=== PATIENT | male | born 1960 | race Caucasian/White ===

== ENCOUNTER 2016-06-19 17:52 | Emergency (ER) | payer BC ==
[2016-06-19 18:01] VITALS: BP 177/84; PULSE 84; RESP 17; TEMP 97.9
--- NOTE | 2016-06-19 18:38 | ED ---
Wound/Laceration HPI - General Chief Complaint: Wound/Laceration Stated Complaint: LACERATION ON RT WRIST Time Seen by Provider: 06/19/16 18:03 Source: patient Mode of arrival: ambulatory Limitations: no limitations - History of Present Illness Initial Comments: 55-year-old male presents to the ER complaining of right forearm laceration after an accidental incident with a knife. Patient states he is trying to undo a safety On a gas can when he accidentally lacerated the right forearm. Patient states it is tender and sore bleeding was controlled with pressure. Patient states his tetanus is up-to-date. He denies any numbness or tingling or loss of motion or sensation. Patient is is unable to clean the wound. She came right here. No other concerns or complaints Patient Tetanus UTD: Yes Context: accidental Associated Symptoms: pain - Related Data Previous Rx's Medication Instructions Recorded Cephalexin [Keflex] 500 mg PO Q6HR #40 cap 09/27/15 Cephalexin [Keflex] 500 mg PO Q8HR #30 cap 06/19/16 Allergies Allergy/AdvReac Type Severity Reaction Status Date / Time No Known Allergies Allergy Verified 09/27/15 11:53 Review of Systems ROS Statement: Those systems with pertinent positive or pertinent negative responses have been documented in the HPI. ROS Other: All systems not noted in ROS Statement are negative. Constitutional: Denies: fever, chills Skin: Reports: other (Lack to right forearm ventral surface) Neurological: Denies: numbness, paresthesias Past Medical History Past Medical History: No Reported History History of Any Multi-Drug Resistant Organisms: None Reported Past Surgical History: No Surgical Hx Reported Past Psychological History: No Psychological Hx Reported Smoking Status: Current every day smoker Past Alcohol Use History: Occasional Past Drug Use History: None Reported General Exam Limitations: no limitations General appearance: alert, in no apparent distress Head exam: Present: atraumatic, normocephalic, normal inspection Eye exam: Present: normal appearance, PERRL, EOMI. Absent: scleral icterus, conjunctival injection, periorbital swelling Respiratory exam: Present: normal lung sounds bilaterally. Absent: respiratory distress, wheezes, rales, rhonchi, stridor Cardiovascular Exam: Present: regular rate, normal rhythm, normal heart sounds. Absent: systolic murmur, diastolic murmur, rubs, gallop, clicks Extremities exam: Present: full ROM, tenderness, normal capillary refill. Absent: normal inspection (Right forearm ventral surface 2 cm laceration linear) , pedal edema, joint swelling, calf tenderness Neurological exam: Present: alert, oriented X3, CN II-XII intact Psychiatric exam: Present: normal affect, normal mood Skin exam: Present: warm, dry, normal color. Absent: intact (To centimeter laceration to the right forearm superficial no tendon lack), rash Course Vital Signs 06/19/16 18:00 Temperature 97.9 F Pulse Rate 84 Respiratory 17 Rate Blood Pressure 177/84 O2 Sat by Pulse 98 Oximetry Procedures - Laceration Laceration #1 Indication: laceration Site: upper extremity Description: linear Depth: simple, single layer Anesthetic Used: lidocaine 1% Anesthesia Technique: local infiltration Type of Sutures: nylon Size of Sutures: 5-0 Number of Sutures: 8 Technique: simple, interrupted Patient Tolerated Procedure: well, no complications (Patient hollered procedure well no crepitations bacitracin and dressing applied) Medical Decision Making - Medical Decision Making Discussed with patient wound care keep area clean dry and covered continue to look for signs of infection such as redness swelling and pain. Patient to take medication as prescribed remove sutures in 7-10 days. Disposition Clinical Impression: Laceration Disposition: HOME SELF-CARE Condition: Good Instructions: Laceration (ED), Care For Your Stitches (ED) Prescriptions: Cephalexin [Keflex] 500 mg PO Q8HR #30 cap Referrals: None,Stated [Primary Care Provider] - 1-2 days Mel Billings MD [REFERRING] - 1-2 days Time of Disposition: 18:38
== END 2016-06-19 18:42 | disposition home or self-care (01) ==
LOC: EC 17:52
DX: S51.811A Laceration without foreign body of right forearm, initial encounter (principal); F17.200 Nicotine dependence, unspecified, uncomplicated; W26.0XXA Contact with knife, initial encounter
CPT/HCPCS: 12001; 99282

== ENCOUNTER → 2016-06-25 | Outpatient (CLI) | payer BC ==
--- NOTE | 2016-06-25 15:24 | XR ---
Limited cervical spine HISTORY: Neck pain, numbness in left arm No comparisons Multilevel facet arthropathy changes present. Anterolisthesis grade 1 C2-3, C3-4, retrolisthesis grad e 1 C5-6 and C6-7. There is multilevel spondylosis. Loss of disc height present at C5-6, C4-5. Cervic al vertebral bodies show preserved height and bone mineralization. The soft tissues are normal. IMPRESSION: Degenerative disc disease and facet arthropathy.
== END | disposition home or self-care (01) ==
LOC: RADXRMAIN 12:54
PROVIDERS: ATTEND Family Medicine
DX: M50.321 Other cervical disc degeneration at C4-C5 level (principal); M12.88 Other specific arthropathies, not elsewhere classified, other specified site
CPT/HCPCS: 72040

== ENCOUNTER 2016-12-17 06:25 | Emergency (ER) | payer BC ==
--- NOTE | 2016-12-17 06:37 | ED ---
General Adult HPI - General Chief complaint: Extremity Problem,Nontraumatic Stated complaint: Left leg swelling/pain Time Seen by Provider: 12/17/16 06:29 Source: patient, RN notes reviewed, old records reviewed Mode of arrival: ambulatory Limitations: no limitations - History of Present Illness Initial comments: This is a 56-year-old male to the ER for evaluation. Patient is here for evaluation of left foot pain. Patient noted left foot swelling and redness. Patient has history of cellulitis of the foot. Patient's it is not coed treatment for cellulitis. Denies any fevers. No other complaints. Patient states he also noticed a scratch to left foot - Related Data Previous Rx's Medication Instructions Recorded Cephalexin [Keflex] 500 mg PO Q6HR #40 cap 09/27/15 Cephalexin [Keflex] 500 mg PO Q8HR #30 cap 06/19/16 Ibuprofen [Motrin] 600 mg PO Q8HR PRN #30 tab 12/17/16 Sulfamethox-Tmp 800-160Mg [Bactrim 1 tab PO Q12HR #14 tab 12/17/16 DS 800-160 mg] Allergies Allergy/AdvReac Type Severity Reaction Status Date / Time No Known Allergies Allergy Verified 12/17/16 06:35 Review of Systems ROS Statement: Those systems with pertinent positive or pertinent negative responses have been documented in the HPI. ROS Other: All systems not noted in ROS Statement are negative. Past Medical History Past Medical History: No Reported History History of Any Multi-Drug Resistant Organisms: None Reported Past Surgical History: No Surgical Hx Reported Past Psychological History: No Psychological Hx Reported Smoking Status: Current every day smoker Past Alcohol Use History: Occasional Past Drug Use History: None Reported General Exam Limitations: no limitations General appearance: alert, in no apparent distress Head exam: Present: atraumatic, normocephalic, normal inspection Eye exam: Present: normal appearance, PERRL, EOMI. Absent: scleral icterus, conjunctival injection, periorbital swelling ENT exam: Present: normal exam, mucous membranes moist Neck exam: Present: normal inspection. Absent: tenderness, meningismus, lymphadenopathy Respiratory exam: Present: normal lung sounds bilaterally. Absent: respiratory distress, wheezes, rales, rhonchi, stridor Cardiovascular Exam: Present: regular rate, normal rhythm, normal heart sounds. Absent: systolic murmur, diastolic murmur, rubs, gallop, clicks GI/Abdominal exam: Present: soft, normal bowel sounds. Absent: distended, tenderness, guarding, rebound, rigid Extremities exam: Present: normal inspection, full ROM, normal capillary refill , other (Left foot erythema, no real warmth, no abscess). Absent: tenderness, pedal edema, joint swelling, calf tenderness Back exam: Present: normal inspection Neurological exam: Present: alert, oriented X3, CN II-XII intact Psychiatric exam: Present: normal affect, normal mood Skin exam: Present: warm, dry, intact, normal color. Absent: rash Course Vital Signs 12/17/16 12/17/16 12/17/16 06:29 07:07 07:40 Temperature 99 F 98.9 F Pulse Rate 85 70 Respiratory 16 18 Rate Blood Pressure 155/91 131/85 O2 Sat by Pulse 99 95 Oximetry - Reevaluation(s) Reevaluation #1: Spoke with patient, patient feels comfortable with discharge home Medical Decision Making - Medical Decision Making 36 male to ER for evaluation. Patient's left foot cellulitis. No entry or fracture. No underlying abscess. Patient can be discharged home on antibiotics return if symptoms worsen - Radiology Data Radiology results: report reviewed (X-ray ankle x-ray foot negative for injury) , image reviewed Disposition Clinical Impression: Cellulitis of left foot Disposition: HOME SELF-CARE Condition: Good Instructions: Cellulitis (ED) Prescriptions: Ibuprofen [Motrin] 600 mg PO Q8HR PRN #30 tab PRN Reason: Pain Sulfamethox-Tmp 800-160Mg [Bactrim DS 800-160 mg] 1 tab PO Q12HR #14 tab Referrals: Hamzah Weldon DO [Primary Care Provider] - 1-2 days
[2016-12-17 07:12] VITALS: BP 131/85; PULSE 70; RESP 18
--- NOTE | 2016-12-17 07:23 | XR ---
EXAMINATION TYPE: XR ankle complete LT, XR foot complete LT DATE OF EXAM: 12/17/2016 CLINICAL HISTORY: Lateral left foot pain with no known injury TECHNIQUE: Frontal, lateral and oblique images of the left ankle are obtained. Frontal, lateral, and oblique images of the left foot are obtained. COMPARISON: None. FINDINGS: There is no acute fracture/dislocation evident in the left ankle. The ankle mortise appea rs within normal limits. There is mild soft tissue swelling around the ankle, greatest of the lateral malleolus. Into the neural accessory ossicles are noted. Small tibiotalar joint effusion appears to be present. There is no acute fracture/dislocation evident in the left foot. The joint spaces in the left foot a ppear within normal limits. The overlying soft tissue appears unremarkable. Small Achilles' heel spu r is present. Punctate density that is lateral to the distal first phalanx appears to be in the skin surface on the lateral view of the plantar aspect of foot rather than a foreign body. IMPRESSION: Mild soft tissue swelling of the ankle greatest over the lateral malleolus with no acute fracture or dislocation in the left ankle forefoot.
[2016-12-17] MEDS ORDERED: IBUPROFEN 800 MG TAB PO STA (07:26)
[2016-12-17] MEDS ORDERED: SULFAMETHOX-TMP 800-160MG 1 EACH TAB PO STA (07:26)
[2016-12-17 07:55] VITALS: TEMP 98.9
== END 2016-12-17 07:45 | disposition home or self-care (01) ==
LOC: EC 06:25
DX: L03.116 Cellulitis of left lower limb (principal); F17.200 Nicotine dependence, unspecified, uncomplicated
CPT/HCPCS: 99283

== ENCOUNTER 2017-06-10 07:14 | Emergency (ER) | payer BC ==
[2017-06-10 07:26] VITALS: RESP 18; TEMP 98
[2017-06-10] MEDS ORDERED: RX INFO: IV CONTRAST WAS GIVEN 1 EACH MISC MISCELLANE PRN (07:42)
[2017-06-10] MEDS ORDERED: KETOROLAC 30 MG/ML 1 ML VIAL IVP STA (07:44)
--- NOTE | 2017-06-10 07:46 | ED ---
General Adult HPI - General Chief complaint: Abdominal Pain Stated complaint: abd pain Time Seen by Provider: 06/10/17 07:35 Source: patient, RN notes reviewed Mode of arrival: ambulatory Limitations: no limitations - History of Present Illness Initial comments: 56 yo male with no significant past medical history presents for evaluation of abdominal pain. Patient states over the past several days he's had generalized abdominal pain. This is been constant level pain with some intermittent episodes of worsening pain. He states it is across his entire abdomen. In the past several hours patient has developed pain in his left side, left lower quadrant. He is also had some left testicular pain. No flank pain. No dysuria. Patient states his urine has been dark, uncertain if there was blood in his urine. No history of kidney stones. Patient states his last bowel movement was yesterday evening and was normal. No nausea vomiting. No fever. - Related Data Previous Rx's Medication Instructions Recorded Levofloxacin [Levaquin] 750 mg PO DAILY #7 tab 06/10/17 metroNIDAZOLE [Flagyl] 500 mg PO Q8HR #21 tab 06/10/17 Allergies Allergy/AdvReac Type Severity Reaction Status Date / Time No Known Allergies Allergy Verified 06/10/17 07:59 Review of Systems ROS Statement: Those systems with pertinent positive or pertinent negative responses have been documented in the HPI. ROS Other: All systems not noted in ROS Statement are negative. Past Medical History Past Medical History: No Reported History History of Any Multi-Drug Resistant Organisms: None Reported Past Surgical History: No Surgical Hx Reported Past Psychological History: No Psychological Hx Reported Smoking Status: Current every day smoker Past Alcohol Use History: Daily Past Drug Use History: None Reported General Exam Limitations: no limitations General appearance: alert, in no apparent distress Head exam: Present: atraumatic, normocephalic Eye exam: Present: normal appearance, PERRL, EOMI ENT exam: Present: normal exam Neck exam: Present: normal inspection. Absent: tenderness, meningismus Respiratory exam: Present: normal lung sounds bilaterally. Absent: respiratory distress, wheezes, rales Cardiovascular Exam: Present: regular rate, normal rhythm GI/Abdominal exam: Present: soft, tenderness (Tenderness in the left lower quadrant). Absent: distended, rebound, rigid exam: Present: normal inspection. Absent: testicular tenderness, urethral discharge, scrotal swelling Extremities exam: Present: normal inspection, normal capillary refill. Absent: pedal edema Neurological exam: Present: alert, oriented X3, CN II-XII intact. Absent: motor sensory deficit Psychiatric exam: Present: normal affect, normal mood Skin exam: Present: warm, dry, intact. Absent: cyanosis, diaphoretic Course Vital Signs 06/10/17 07:23 Temperature 98 F Pulse Rate 76 Respiratory 18 Rate Blood Pressure 151/76 O2 Sat by Pulse 99 Oximetry Medical Decision Making - Medical Decision Making 50 sexual male presenting with 3 days of generalized abdominal pain and several hours of left lower quadrant pain laboratory studies are obtained, patient does have leukocytosis with an elevated white blood cell count at 15. Electrolytes normal. Lactic acid is normal at 0.9. CT with contrast is obtained, this shows an acute diverticulitis of the lower descending colon. There is no intraperitoneal free air, no abscess. Patient is otherwise well-appearing, normal vital signs. No nausea or vomiting. He will be started on Levaquin and metronidazole. Return with worsening or changing symptoms. - Lab Data Result diagrams: 06/10/17 07:50 06/10/17 07:50 Lab Results 06/10/17 06/10/17 06/10/17 Range/Units 07:50 07:50 07:50 WBC 15.4 H (3.8-10.6) k/uL RBC 4.55 (4.30-5.90) m/uL Hgb 15.2 (13.0-17.5) gm/dL Hct 41.3 (39.0-53.0) % MCV 90.8 (80.0-100.0) fL MCH 33.4 (25.0-35.0) pg MCHC 36.8 (31.0-37.0) g/dL RDW 12.4 (11.5-15.5) % Plt Count 272 (150-450) k/uL Neutrophils % 77 % Lymphocytes % 14 % Monocytes % 6 % Eosinophils % 2 % Basophils % 0 % Neutrophils # 11.8 H (1.3-7.7) k/uL Lymphocytes # 2.1 (1.0-4.8) k/uL Monocytes # 0.9 (0-1.0) k/uL Eosinophils # 0.4 (0-0.7) k/uL Basophils # 0.1 (0-0.2) k/uL PT (9.0-12.0) sec INR (<1.2) APTT (22.0-30.0) sec Sodium 140 (137-145) mmol/L Potassium 4.2 (3.5-5.1) mmol/L Chloride 105 (98-107) mmol/L Carbon Dioxide 23 (22-30) mmol/L Anion Gap 12 mmol/L BUN 13 (9-20) mg/dL Creatinine 0.82 (0.66-1.25) mg/dL Est GFR (CKD-EPI)AfAm >90 (>60 ml/min/1.73 sqM) Est GFR (CKD-EPI)NonAf >90 (>60 ml/min/1.73 sqM) Glucose 111 H (74-99) mg/dL Plasma Lactic Acid Zac 0.9 (0.7-2.0) mmol/L Calcium 9.1 (8.4-10.2) mg/dL Total Bilirubin 1.3 (0.2-1.3) mg/dL AST 23 (17-59) U/L ALT 45 (21-72) U/L Alkaline Phosphatase 85 (38-126) U/L Total Protein 6.7 (6.3-8.2) g/dL Albumin 3.9 (3.5-5.0) g/dL Amylase 35 (30-110) U/L Lipase 35 (23-300) U/L 06/10/17 Range/Units 07:50 WBC (3.8-10.6) k/uL RBC (4.30-5.90) m/uL Hgb (13.0-17.5) gm/dL Hct (39.0-53.0) % MCV (80.0-100.0) fL MCH (25.0-35.0) pg MCHC (31.0-37.0) g/dL RDW (11.5-15.5) % Plt Count (150-450) k/uL Neutrophils % % Lymphocytes % % Monocytes % % Eosinophils % % Basophils % % Neutrophils # (1.3-7.7) k/uL Lymphocytes # (1.0-4.8) k/uL Monocytes # (0-1.0) k/uL Eosinophils # (0-0.7) k/uL Basophils # (0-0.2) k/uL PT 9.9 (9.0-12.0) sec INR 1.0 (<1.2) APTT 25.6 (22.0-30.0) sec Sodium (137-145) mmol/L Potassium (3.5-5.1) mmol/L Chloride (98-107) mmol/L Carbon Dioxide (22-30) mmol/L Anion Gap mmol/L BUN (9-20) mg/dL Creatinine (0.66-1.25) mg/dL Est GFR (CKD-EPI)AfAm (>60 ml/min/1.73 sqM) Est GFR (CKD-EPI)NonAf (>60 ml/min/1.73 sqM) Glucose (74-99) mg/dL Plasma Lactic Acid Zac (0.7-2.0) mmol/L Calcium (8.4-10.2) mg/dL Total Bilirubin (0.2-1.3) mg/dL AST (17-59) U/L ALT (21-72) U/L Alkaline Phosphatase (38-126) U/L Total Protein (6.3-8.2) g/dL Albumin (3.5-5.0) g/dL Amylase (30-110) U/L Lipase (23-300) U/L Disposition Clinical Impression: Diverticulitis Disposition: HOME SELF-CARE Condition: Good Instructions: Diverticulitis (ED) Prescriptions: Levofloxacin [Levaquin] 750 mg PO DAILY #7 tab metroNIDAZOLE [Flagyl] 500 mg PO Q8HR #21 tab Referrals: Hamzah Weldon DO [Primary Care Provider] - 1-2 days Time of Disposition: 09:35
[2017-06-10 08:06] LABS: Basophils # (A) 0.1 k/uL (0-0.2); Basophils % (A) 0 %; Eosinophils # (A) 0.4 k/uL (0-0.7); Eosinophils % (A) 2 %; HCT 41.3 % (39.0-53.0); HGB 15.2 gm/dL (13.0-17.5); Lymphocytes # (A) 2.1 k/uL (1.0-4.8); Lymphocytes % (A) 14 %; MCH 33.4 pg (25.0-35.0); MCHC 36.8 g/dL (31.0-37.0); MCV 90.8 fL (80.0-100.0); Mean Platelet Volume 6.8; Monocytes # (A) 0.9 k/uL (0-1.0); Monocytes % (A) 6 %; Neutrophils # (A) 11.8 k/uL (1.3-7.7); Neutrophils % (A) 77 %; Platelet Count 272 k/uL (150-450); RBC 4.55 m/uL (4.30-5.90); RDW 12.4 % (11.5-15.5); WBC 15.4 k/uL (3.8-10.6)
[2017-06-10 08:17] LABS: Partial Thromboplastin Time 25.6 sec (22.0-30.0); Prothrombin Time 9.9 sec (9.0-12.0)
[2017-06-10 08:18] LABS: ALT 45 U/L (21-72); AST 23 U/L (17-59); Albumin 3.9 g/dL (3.5-5.0); Alkaline Phosphatase 85 U/L (38-126); Amylase 35 U/L (30-110); Anion Gap 12 mmol/L; Blood Urea Nitrogen 13 mg/dL (9-20); Calcium 9.1 mg/dL (8.4-10.2); Carbon Dioxide 23 mmol/L (22-30); Chloride 105 mmol/L (98-107); Glucose 111 mg/dL (74-99); Lipase 35 U/L (23-300); Potassium 4.2 mmol/L (3.5-5.1); Sodium 140 mmol/L (137-145); Total Bilirubin 1.3 mg/dL (0.2-1.3); Total Protein 6.7 g/dL (6.3-8.2)
--- NOTE | 2017-06-10 08:57 | CT ---
EXAMINATION TYPE: CT abdomen pelvis w con DATE OF EXAM: 06/10/2017 COMPARISON: NONE HISTORY: 56-year-old male LLQ pain TECHNIQUE: Contiguous axial scanning of the abdomen and pelvis following administration of 100 ml Omn ipaque 300 IV contrast. Delayed images through the kidneys and coronal/sagittal reconstructions perf ormed. CT DLP: 753.5 mGycm Automated exposure control for dose reduction was used. FINDINGS: Heart is normal size without pericardial effusion. Lung bases clear without pleural effusion. Liver mildly enlarged measuring 19.8 cm there is some focal fat along the anterior falciform ligament . No biliary ductal dilatation. Portal venous system is patent Adrenal glands, kidneys, spleen, and pancreas appear within normal limits. Borderline size left para-aortic lymph nodes measuring from 6 to 9 mm. 7 mm retroaortic lymph node in the upper abdomen axial image 33. No mesenteric lymphadenopathy. No dilated small bowel or free air. Normal appendix. Scattered mild stool. There is left hemicolonic diverticulosis, greatest in the sigmoid colon. There is moderate wall thick ening of a segment of lower descending colon with moderate surrounding fat stranding and tracking jer ma along the left paracolic gutter tracking down with mild pelvic free fluid collected. Bladder partially urine distended. No pelvic lymphadenopathy seen. Bones: Degenerative changes at the hips. Mild multilevel degenerative disc disease. IMPRESSION: 1. DESCENDING AND SIGMOID COLONIC DIVERTICULOSIS. THERE IS MODERATE ACUTE DIVERTICULITIS OF THE LOWER DESCENDING COLON. INFLAMMATORY FLUID TRACKS DOWN INTO THE PELVIS. NO ABSCESS OR FREE AIR. FOLLOW-UP COLONOSCOPY AFTER SUCCESSFUL TREATMENT. 2. SOME NONSPECIFIC BORDERLINE SIZED RETROPERITONEAL LYMPH NODES PROBABLY REACTIVE MEASURING UP TO 9 MM. 3. HEPATOMEGALY (19.8 CM). SUSPECT SOME UNDERLYING FATTY INFILTRATION.
[2017-06-10 10:07] VITALS: BP 123/74; PULSE 59
== END 2017-06-10 10:03 | disposition home or self-care (01) ==
LOC: EC 07:14
DX: K57.32 Diverticulitis of large intestine without perforation or abscess without bleeding (principal); D72.829 Elevated white blood cell count, unspecified; N50.812 Left testicular pain; R82.99 Other abnormal findings in urine; F17.200 Nicotine dependence, unspecified, uncomplicated
CPT/HCPCS: 99284; 96374; 36415; 80053; 82150; 83605; 83690; 85025; 85610; 85730; 74177; J1885; Q9967

== ENCOUNTER 2018-12-15 16:54 | Emergency (ER) | payer BC ==
[2018-12-15 16:59] VITALS: BP 139/87; PULSE 72; TEMP 98.3
--- NOTE | 2018-12-15 18:11 | US ---
EXAMINATION TYPE: US venous doppler duplex LE LT DATE OF EXAM: 12/15/2018 5:41 PM COMPARISON: NONE CLINICAL HISTORY: pain ,redness. Pain/redness x couple days. No HX of DVT. Patient not on blood thinn ers. SIDE PERFORMED: Left TECHNIQUE: The lower extremity deep venous system is examined utilizing real time linear array sonog sánchez with graded compression, doppler sonography and color-flow sonography. VESSELS IMAGED: External Iliac Vein (EIV) Common Femoral Vein Deep Femoral Vein Greater Saphenous Vein * Femoral Vein Popliteal Vein Small Saphenous Vein * Proximal Calf Veins (* superficial vessels) Left Leg: No evidence of DVT in veins imaged from prox calf veins to EIV. Hypoechoic areas with hype rechoic centers and vascular tahri seen in the left groin. Larger measurin.2 x 1.8 x 1.5 cm. IMPRESSION: No evidence of deep venous thrombosis in the left leg. There are a few left inguinal lym ph nodes.
[2018-12-15] MEDS ORDERED: cefTRIAXone 1,000 MG VIAL (IM USE) IM STA (18:19)
[2018-12-15] MEDS ORDERED: CEPHALEXIN 500MG STARTER PACK 4 CAP BTL PO STA (18:40)
--- NOTE | 2018-12-15 18:42 | ED ---
General Adult HPI - General Source: patient, RN notes reviewed, old records reviewed Mode of arrival: ambulatory Limitations: no limitations <Clement Velazquez - Last Filed: 12/15/18 18:39> <Tessa Gutierrez - Last Filed: 12/17/18 00:18> - General Chief complaint: Skin/Abscess/Foreign Body Stated complaint: Leg Swelling/Redness Time Seen by Provider: 12/15/18 17:01 - History of Present Illness Initial comments: 58-year-old male patient presents for chief complaint of redness to posterior calf region of left leg. Has not ongoing for 3 days. Patient was sent in by primary care prior to rule out cellulitis and DVT. Patient denies any chest pain or shortness of breath. Patient denies any other complaints at this time. Patient is nondiabetic. Denies any systemic symptoms of infection. Systemic: Pt denies fatigue, fever/chills, rash. Pt denies weakness, night sweats, weight loss. Neuro: Pt denies headache, visual disturbances, syncope or pre-syncope. HEENT: Pt denies ocular discharge or irritation, otalgia, rhinorrhea, pharyngitis or notable lymphadenopathy. Cardiopulmonary: Pt denies chest pain, SOB, heart palpitations, dyspnea on exertion. Abdominal/GI: Pt denies abdominal pain, n/v/d. : Pt denies dysuria, burning w/ urination, frequency/urgency. Denies new onset urinary or bowel incontinence. MSK: Pt denies myalgia, loss of strength or function in extremities. Neuro: Pt denies new onset weakness, paresthesias. (Clement Velazquez) - Related Data Previous Rx's Medication Instructions Recorded Levofloxacin [Levaquin] 750 mg PO DAILY #7 tab 06/10/17 metroNIDAZOLE [Flagyl] 500 mg PO Q8HR #21 tab 06/10/17 Cephalexin [Keflex] 500 mg PO Q6HR 7 Days #28 cap 12/15/18 Allergies Allergy/AdvReac Type Severity Reaction Status Date / Time No Known Allergies Allergy Verified 12/15/18 16:59 Review of Systems ROS Other: All systems not noted in ROS Statement are negative. <Clement Velazquez - Last Filed: 12/15/18 18:39> ROS Other: All systems not noted in ROS Statement are negative. <Tessa Gutierrez - Last Filed: 12/17/18 00:18> ROS Statement: Those systems with pertinent positive or pertinent negative responses have been documented in the HPI. Past Medical History Past Medical History: No Reported History History of Any Multi-Drug Resistant Organisms: None Reported Past Surgical History: No Surgical Hx Reported Past Psychological History: No Psychological Hx Reported Smoking Status: Current every day smoker Past Alcohol Use History: Daily Past Drug Use History: Marijuana <Clement Velazquez - Last Filed: 12/15/18 18:39> General Exam Limitations: no limitations <Clement Velazquez - Last Filed: 12/15/18 18:39> - General Exam Comments Initial Comments: Constitutional: NAD, AOX3, Pt has pleasant affect. HEENT: NC/AT, trachea midline, neck supple, no lymphadenopathy. Posterior pharynx non erythematous, without exudates. External ears appear normal, without discharge. Mucous membranes moist. Eyes PERRLA, EOM intact. There is no scleral icterus. No pallor noted. Cardiopulmonary: RRR, no murmurs, rubs or gallops, no JVD noted. Lungs CTAB in anterior and posterior zepeda. No peripheral edema. Abdominal exam: Abdomen soft and non-distended. Abdomen non-tender to palpation in all 4 quadrants. Bowel sounds active in LLQ. No hepatosplenomegaly. No ecchymosis Neuro: CN II-XII grossly intact. No nuchal rigidity. No raccon eyes, no hammer sign, no hemotympanum. No cervical spinal tenderness. MSK: Mild amount of left posterior calf tenderness, homans sign negative bilaterally. Posterior tibialis and radial pulse +2 bilaterally. Sensation intact in upper and lower extremities. Full active ROM in upper and lower extremities, 5/5 stregnth. Derm: Mild amount of erythema to posterior left calf region. (Clement Velazquez) Course Vital Signs 12/15/18 12/15/18 16:56 19:15 Temperature 98.3 F Pulse Rate 72 Respiratory 20 17 Rate Blood Pressure 139/87 O2 Sat by Pulse 99 Oximetry Medical Decision Making <Clement Velazquez - Last Filed: 12/15/18 18:39> <Tessa Gutierrez - Last Filed: 12/17/18 00:18> - Medical Decision Making 58-year-old male patient presents for chief complaint of redness to posterior calf region of left leg. Has not ongoing for 3 days. Patient was sent in by primary care prior to rule out cellulitis and DVT. Patient denies any chest pain or shortness of breath. Patient denies any other complaints at this time. Patient is nondiabetic. Rather systemic symptoms of infection. Patient will send stable, afebrile. Physical exam displayed a mild amount of erythema in the posterior calf region. Ultrasound negative for DVT. Some inguinal lymph nodes noted. Patient be treated for cellulitis. Patient was discharged with prescription for Keflex. Administered 1 g Rocephin ED. Patient will be discharged with close follow-up with primary care prior and return precautions. Case discussed and pt seen by Dr. Gutierrez. (Clement Velazquez) I was available for consultation in the emergency department. The history and physical exam were done by the midlevel provider. I was consulted for this patients care. I reviewed the case with the midlevel provider and based on their presentation of the patient, I agree with the assessment, medical decision making and plan of care as documented. I evaluated the patient myself. Chart was dictated using [employer] dictation software. Attempts were made to correct any dictation errors however some typographical errors may persist. (Tessa Gutierrez) Disposition Is patient prescribed a controlled substance at d/c from ED?: No <Clement Velazquez - Last Filed: 12/15/18 18:39> <Tessa Gutierrez - Last Filed: 12/17/18 00:18> Clinical Impression: Cellulitis Disposition: HOME SELF-CARE Condition: Stable Instructions (If sedation given, give patient instructions): Cellulitis (ED) Additional Instructions: Patient to adhere to previously discussed treatment plan and will take medication(s) as directed. Patient to follow up with PCP in 1-2 days. Patient to return to ED if symptoms do not improve. Follow-up with primary care provider tomorrow. Take medications as directed. Return to ER if condition worsens. Prescriptions: Cephalexin [Keflex] 500 mg PO Q6HR 7 Days #28 cap Referrals: Hamzah Weldon, [Primary Care Provider] - 1-2 days
[2018-12-15 19:16] VITALS: RESP 17
== END 2018-12-15 19:16 | disposition home or self-care (01) ==
LOC: EC 16:54
DX: L03.116 Cellulitis of left lower limb (principal); F17.200 Nicotine dependence, unspecified, uncomplicated
CPT/HCPCS: 93971; 99284; 96372; J0696

== ENCOUNTER 2020-12-18 15:46 | Observation (INO) | payer BC ==
[2020-12-18] MEDS ORDERED: ASPIRIN 81 MG PO STA (18:22)
[2020-12-18] MEDS ORDERED: NITROGLYCERIN OINT 1 INCH/GM PACKET TOPICAL STA (18:22)
--- NOTE | 2020-12-18 18:25 | ED ---
General Adult HPI - General Chief complaint: Chest Pain Stated complaint: Chest Pain Time Seen by Provider: 12/18/20 16:00 Source: patient, RN notes reviewed, old records reviewed Mode of arrival: ambulatory Limitations: no limitations - History of Present Illness Initial comments: This is a 60-year-old male presents emergency Department complaining of chest pain. Patient states it lasts about 6 to 10 minutes. Patient states became diaphoretic. Patient states he is mildly short of breath. Patient denies any radiation of the pain. Patient states the symptoms have resolved completely at this time. Patient denies any recent fever chills or cough. Patient states he has had his cholesterol checked lately he denies ever had high blood pressure but he does smoke daily. Patient denies any lightheadedness or dizziness. Patient denies any near syncopal episode. Patient denies any swelling to the legs or calf tenderness. Patient denies any abdominal pain patient denies nausea vomiting diarrhea - Related Data Home Medications Medication Instructions Recorded Confirmed Ibuprofen [Advil] 200 mg PO Q8HR PRN 12/18/20 12/18/20 Allergies Allergy/AdvReac Type Severity Reaction Status Date / Time No Known Allergies Allergy Verified 12/18/20 18:24 Review of Systems ROS Statement: Those systems with pertinent positive or pertinent negative responses have been documented in the HPI. ROS Other: All systems not noted in ROS Statement are negative. Past Medical History Past Medical History: No Reported History History of Any Multi-Drug Resistant Organisms: None Reported Past Surgical History: No Surgical Hx Reported Past Psychological History: No Psychological Hx Reported Smoking Status: Current every day smoker Past Alcohol Use History: Daily Past Drug Use History: Marijuana General Exam - General Exam Comments Initial Comments: GENERAL: Patient is well-developed and well-nourished. Patient is nontoxic and well- hydrated and is in mild distress. ENT: Neck is soft and supple. No significant lymphadenopathy is noted. Oropharynx is clear. Moist mucous membranes. Neck has full range of motion without eliciting any pain. EYES: The sclera were anicteric and conjunctiva were pink and moist. Extraocular movements were intact and pupils were equal round and reactive to light. Eyelids were unremarkable. PULMONARY: Unlabored respirations. Good breath sounds bilaterally. No audible rales rhonchi or wheezing was noted. CARDIOVASCULAR: There is a regular rate and rhythm without any murmurs gallops or rubs. ABDOMEN: Soft and nontender with normal bowel sounds. SKIN: Skin is clear with no lesions or rashes and otherwise unremarkable. NEUROLOGIC: Patient is alert and oriented x3. Cranial nerves II through XII are grossly intact. Motor and sensory are also intact. Normal speech, volume and content. Symmetrical smile. MUSCULOSKELETAL: Normal extremities with adequate strength and full range of motion. No lower extremity swelling or edema. No calf tenderness. LYMPHATICS: No significant lymphadenopathy is noted PSYCHIATRIC: Normal psychiatric evaluation. Limitations: no limitations Course Vital Signs 12/18/20 12/18/20 12/18/20 15:58 18:09 20:00 Temperature 98.1 F Pulse Rate 56 L 50 L 60 Respiratory 17 16 20 Rate Blood Pressure 186/86 152/85 O2 Sat by Pulse 99 97 97 Oximetry Medical Decision Making - Medical Decision Making EKG shows sinus bradycardia 51 bpm NC interval 226 QRS is 88 QT interval 440 QTC is 45 per patient's EKG shows no ST segment elevation or depression. Chest x-ray showed no acute abnormality. I went back and reevaluate the patient he continued to be chest pain-free. Patient was somewhat reluctant to stay because her risk factors and the significance of his pain today he was in agreement to stay. - Lab Data Result diagrams: 12/18/20 18:24 12/18/20 18:24 Lab Results 12/18/20 12/18/20 12/18/20 Range/Units 18:24 18:24 18:24 WBC 9.0 (3.8-10.6) k/uL RBC 4.59 (4.30-5.90) m/uL Hgb 15.8 (13.0-17.5) gm/dL Hct 44.9 (39.0-53.0) % MCV 97.8 (80.0-100.0) fL MCH 34.3 (25.0-35.0) pg MCHC 35.1 (31.0-37.0) g/dL RDW 12.1 (11.5-15.5) % Plt Count 261 (150-450) k/uL MPV 7.1 Neutrophils % 53 % Lymphocytes % 32 % Monocytes % 7 % Eosinophils % 5 % Basophils % 1 % Neutrophils # 4.7 (1.3-7.7) k/uL Lymphocytes # 2.9 (1.0-4.8) k/uL Monocytes # 0.7 (0-1.0) k/uL Eosinophils # 0.5 (0-0.7) k/uL Basophils # 0.1 (0-0.2) k/uL PT 10.1 (9.0-12.0) sec INR 0.9 (<1.2) APTT 25.1 (22.0-30.0) sec Sodium 137 (137-145) mmol/L Potassium 4.6 (3.5-5.1) mmol/L Chloride 105 (98-107) mmol/L Carbon Dioxide 25 (22-30) mmol/L Anion Gap 7 mmol/L BUN 17 (9-20) mg/dL Creatinine 0.84 (0.66-1.25) mg/dL Est GFR (CKD-EPI)AfAm >90 (>60 ml/min/1.73 sqM) Est GFR (CKD-EPI)NonAf >90 (>60 ml/min/1.73 sqM) Glucose 112 H (74-99) mg/dL Calcium 9.3 (8.4-10.2) mg/dL Magnesium 2.3 (1.6-2.3) mg/dL Total Bilirubin 0.6 (0.2-1.3) mg/dL AST 35 (17-59) U/L ALT 38 (4-49) U/L Alkaline Phosphatase 82 (38-126) U/L Troponin I (0.000-0.034) ng/mL Total Protein 7.3 (6.3-8.2) g/dL Albumin 4.3 (3.5-5.0) g/dL 12/18/20 Range/Units 18:24 WBC (3.8-10.6) k/uL RBC (4.30-5.90) m/uL Hgb (13.0-17.5) gm/dL Hct (39.0-53.0) % MCV (80.0-100.0) fL MCH (25.0-35.0) pg MCHC (31.0-37.0) g/dL RDW (11.5-15.5) % Plt Count (150-450) k/uL MPV Neutrophils % % Lymphocytes % % Monocytes % % Eosinophils % % Basophils % % Neutrophils # (1.3-7.7) k/uL Lymphocytes # (1.0-4.8) k/uL Monocytes # (0-1.0) k/uL Eosinophils # (0-0.7) k/uL Basophils # (0-0.2) k/uL PT (9.0-12.0) sec INR (<1.2) APTT (22.0-30.0) sec Sodium (137-145) mmol/L Potassium (3.5-5.1) mmol/L Chloride (98-107) mmol/L Carbon Dioxide (22-30) mmol/L Anion Gap mmol/L BUN (9-20) mg/dL Creatinine (0.66-1.25) mg/dL Est GFR (CKD-EPI)AfAm (>60 ml/min/1.73 sqM) Est GFR (CKD-EPI)NonAf (>60 ml/min/1.73 sqM) Glucose (74-99) mg/dL Calcium (8.4-10.2) mg/dL Magnesium (1.6-2.3) mg/dL Total Bilirubin (0.2-1.3) mg/dL AST (17-59) U/L ALT (4-49) U/L Alkaline Phosphatase (38-126) U/L Troponin I <0.012 (0.000-0.034) ng/mL Total Protein (6.3-8.2) g/dL Albumin (3.5-5.0) g/dL Disposition Clinical Impression: Chest pain Disposition: ADMITTED IP TO THIS [facility] Referrals: Hamzah Weldon DO [Primary Care Provider] - 1-2 days Time of Disposition: 20:07
[2020-12-18 18:34] LABS: Basophils # (A) 0.1 k/uL (0-0.2); Basophils % (A) 1 %; Eosinophils # (A) 0.5 k/uL (0-0.7); Eosinophils % (A) 5 %; HCT 44.9 % (39.0-53.0); HGB 15.8 gm/dL (13.0-17.5); Lymphocytes # (A) 2.9 k/uL (1.0-4.8); Lymphocytes % (A) 32 %; MCH 34.3 pg (25.0-35.0); MCHC 35.1 g/dL (31.0-37.0); MCV 97.8 fL (80.0-100.0); Mean Platelet Volume 7.1; Monocytes # (A) 0.7 k/uL (0-1.0); Monocytes % (A) 7 %; Neutrophils # (A) 4.7 k/uL (1.3-7.7); Neutrophils % (A) 53 %; Platelet Count 261 k/uL (150-450); RBC 4.59 m/uL (4.30-5.90); RDW 12.1 % (11.5-15.5)
[2020-12-18 18:43] LABS: ALT 38 U/L (4-49); AST 35 U/L (17-59); African American GFR (CKD) >90 (>60 ml/min/1.73 sqM); Albumin 4.3 g/dL (3.5-5.0); Alkaline Phosphatase 82 U/L (38-126); Anion Gap 7 mmol/L; Blood Urea Nitrogen 17 mg/dL (9-20); Calcium 9.3 mg/dL (8.4-10.2); Carbon Dioxide 25 mmol/L (22-30); Chloride 105 mmol/L (98-107); Glucose 112 mg/dL (74-99); Magnesium 2.3 mg/dL (1.6-2.3); Non-African American GFR(CKD) >90 (>60 ml/min/1.73 sqM); Potassium 4.6 mmol/L (3.5-5.1); Sodium 137 mmol/L (137-145); Total Bilirubin 0.6 mg/dL (0.2-1.3); Total Protein 7.3 g/dL (6.3-8.2)
--- NOTE | 2020-12-18 18:43 | XR ---
EXAMINATION TYPE: XR chest 2V DATE OF EXAM: 12/18/2020 COMPARISON: Chest radiograph August 07, 2009 HISTORY: Chest pain TECHNIQUE: Frontal and lateral views of the chest are obtained. FINDINGS: There is no focal air space opacity, pleural effusion, or pneumothorax seen. The cardiac silhouette size is within normal limits. The osseous structures are intact. IMPRESSION: No acute cardiopulmonary process.
[2020-12-18 18:44] LABS: INR 0.9 (<1.2); Partial Thromboplastin Time 25.1 sec (22.0-30.0); Prothrombin Time 10.1 sec (9.0-12.0)
[2020-12-18] MEDS ORDERED: NITROGLYCERIN SL TABS 0.4 MG TAB SUBLINGUAL PRN (20:07)
[2020-12-19] MEDS: NITROGLYCERIN OINT 1 INCH/GM PACKET TOPICAL SCH ×3 (00:33→12:53)
[2020-12-19 02:19] VITALS: RESP 18
[2020-12-19] MEDS ORDERED: ASPIRIN 325 MG TAB PO SCH (09:00)
[2020-12-19] MEDS ORDERED: ASPIRIN 81 MG PO SCH (10:30)
[2020-12-19 10:43] LABS: Chol/HDL Ratio 3.88 Ratio; HDL Cholesterol 44.1 mg/dL (40.00-60.00); LDL Cholesterol,Calculated 57.5 mg/dL (0.0-131.0); VLDL Calculation 69.4 mg/dL (5.00-40.00)
--- NOTE | 2020-12-19 12:35 | ECHOF ---
Referral Reason:Chest pain MEASUREMENTS -------- HEIGHT: 182.9 cm WEIGHT: 88.0 kg BP: RVIDd: 3.5 cm (< 3.3) IVSd: 1.2 cm (0.6 - 1.1) LVIDd: 4.7 cm (3.9 - 5.3) LVPWd: 1.4 cm (0.6 - 1.1) IVSs: 1.4 cm LVIDs: 3.4 cm LVPWs: 1.5 cm LA Diam: 3.4 cm (2.7 - 3.8) Ao Diam: 3.2 cm (2.0 - 3.7) AV Cusp: 2.2 cm (1.5 - 2.6) MV EXCURSION: 17.007 mm (> 18.000) MV EF SLOPE: 37 mm/s (70 - 150) EPSS: 0.7 cm MV E Maurizio: 0.75 m/s MV DecT: 254 ms MV A Maurizio: 0.80 m/s MV E/A Ratio: 0.94 RAP: 5.00 mmHg RVSP: 28.71 mmHg FINDINGS -------- Sinus rhythm. This was a technically good study. LV size, wall thickness and systolic function are normal, with an EF greater than 55%. The left rikki tricular size is normal. The right ventricle is normal in size. Normal LA size by volume 22+/-6 ml/m2. The right atrial size is normal. Trace amount of aortic regurgitation. Mild mitral regurgitation is present. Mild tricuspid regurgitation present. Right ventricular systolic pressure is normal at < 35 mmHg. There is no pulmonic regurgitation present. The aortic root size is normal. Echo free space indicative of a pericardial fat pad. CONCLUSIONS -------- 1. LV size, wall thickness and systolic function are normal, with an EF greater than 55%. 2. The left ventricular size is normal. 3. The right ventricle is normal in size. 4. Normal LA size by volume 22+/-6 ml/m2. 5. The right atrial size is normal. 6. Trace amount of aortic regurgitation. 7. Mild mitral regurgitation is present. 8. Mild tricuspid regurgitation present. 9. The aortic root size is normal. 10. Echo free space indicative of a pericardial fat pad. [employer] MECHANIC: Maria Eugenia Du RDCS
--- NOTE | 2020-12-19 13:28 | P.CRDCN ---
History of Present Illness Consult date: 12/19/20 History of present illness: HISTORY OF PRESENT ILLNESS: This is a 60-year-old male with a past medical history significant for nicotine dependence. Patient denies any cardiac history and does not follow with a manager imaging. We have been asked to see the patient in consultation for chest pain. Patient examined at the bedside. Patient states he was at the dentist yesterday when he developed chest pain in the middle of his chest. He states he was very diaphoretic in the dental hygienist went to get the dentist to evaluated the patient and recommended that he come to the hospital for further evaluation. The patient states the pain lasted for approximately 10 minutes and then resolved on its home. He denied any radiation of the pain. He is unsure if he was short of breath at the time. Patient does report he has had a few episodes similar to this over the past week. Patient currently denies chest pain or pressure. She reports a family history of coronary artery disease and states his dad had open-heart surgery but he is unsure of his age at the time of surgery. EKG reveals sinus mechanism with no signs of acute ischemia Chest xray negative for acute process. Laboratory data: CBC 9.0. Hemoglobin 15.8. Platelet count 261. Sodium 137. Potassium 4.6. BUN 17. Creatinine 0.84. Magnesium 2.3. Troponin negative 3. Current home cardiac medications include none REVIEW OF SYSTEMS: At the time of my exam: CONSTITUTIONAL: Denies fever or chills. HEENT: Denies blurred vision, vision changes, or eye pain. Denies hemoptysis CARDIOVASCULAR: Denies chest pain. Denies orthopnea. Denies PND. Denies palpitations RESPIRATORY: Denies shortness of breath. GASTROINTESTINAL: Denies abdominal pain. Denies nausea or vomiting. HEMATOLOGIC: Denies bleeding disorders. GENITOURINARY: Denies any blood in urine. SKIN: Denies pruitis. Denies rash. PHYSICAL EXAM: VITAL SIGNS: Reviewed. GENERAL: Well-developed in no acute distress. HEENT: Head is normocephalic. Pupils are equal, round. Sclerae anicteric. Mucous membranes of the mouth are moist. Neck supple. No JVD or thyromegaly LUNGS: Respirations even and unlabored. Lungs essentially clear to auscultation bilaterally. HEART: Regular rate and rhythm. S1 and S2 heard. ABDOMEN: Soft. Nondistended. Nontender. EXTREMITIES: Normal range of motion. No clubbing or cyanosis. Peripheral pulses intact. No lower extremity edema NEUROLOGIC: Awake and alert. Oriented x 3. ASSESSMENT: Chest pain, troponins negative 3 Nicotine dependence Family history of coronary artery disease PLAN: An acute coronary and has been ruled out Obtain 2-D echo to assess cardiac return function Decrease aspirin to 81 mg daily Patient will undergo stress echocardiogram today to assess for ischemia Further recommendations pending patient's course Nurse practitioner note has been reviewed by physician. Signing provider agrees with the documented findings, assessment, and plan of care. Past Medical History Past Medical History: No Reported History History of Any Multi-Drug Resistant Organisms: None Reported Past Surgical History: No Surgical Hx Reported Past Psychological History: No Psychological Hx Reported Smoking Status: Current every day smoker Past Alcohol Use History: Daily Past Drug Use History: Marijuana Medications and Allergies Home Medications Medication Instructions Recorded Confirmed Type Ibuprofen [Advil] 200 mg PO Q8HR PRN 12/18/20 12/18/20 History Allergies Allergy/AdvReac Type Severity Reaction Status Date / Time No Known Allergies Allergy Verified 12/18/20 18:24 Physical Exam Vitals: Vital Signs Temp Pulse Pulse Resp BP BP Pulse Ox 12/19/20 02:00 98.2 F 52 L 18 140/75 97 12/19/20 00:00 55 L 20 124/69 96 12/18/20 20:00 60 20 152/85 97 12/18/20 18:09 50 L 16 97 12/18/20 15:58 98.1 F 56 L 17 186/86 99 Intake and Output 12/18/20 12/19/20 12/19/20 22:59 06:59 14:59 Intake Total 0 Balance 0 Intake: Oral 0 Other: Voiding Method Toilet # Voids 2 Weight 90.718 kg 88.2 kg Results 12/18/20 18:24 12/18/20 18:24 Cardiac Enzymes 12/18/20 12/18/20 12/18/20 Range/Units 18:24 18:24 20:57 AST 35 (17-59) U/L Troponin I <0.012 <0.012 (0.000-0.034) ng/mL 12/19/20 Range/Units 00:01 AST (17-59) U/L Troponin I <0.012 (0.000-0.034) ng/mL Coagulation 12/18/20 Range/Units 18:24 PT 10.1 (9.0-12.0) sec APTT 25.1 (22.0-30.0) sec CBC 12/18/20 Range/Units 18:24 WBC 9.0 (3.8-10.6) k/uL RBC 4.59 (4.30-5.90) m/uL Hgb 15.8 (13.0-17.5) gm/dL Hct 44.9 (39.0-53.0) % Plt Count 261 (150-450) k/uL Comprehensive Metabolic Panel 12/18/20 Range/Units 18:24 Sodium 137 (137-145) mmol/L Potassium 4.6 (3.5-5.1) mmol/L Chloride 105 (98-107) mmol/L Carbon Dioxide 25 (22-30) mmol/L BUN 17 (9-20) mg/dL Creatinine 0.84 (0.66-1.25) mg/dL Glucose 112 H (74-99) mg/dL Calcium 9.3 (8.4-10.2) mg/dL AST 35 (17-59) U/L ALT 38 (4-49) U/L Alkaline Phosphatase 82 (38-126) U/L Total Protein 7.3 (6.3-8.2) g/dL Albumin 4.3 (3.5-5.0) g/dL Current Medications Generic Name Dose Route Start Last Admin Trade Name Freq PRN Reason Stop Dose Admin Aspirin 325 mg 12/19/20 09:00 Aspirin 325 Mg Tab PO DAILY JAIME Nitroglycerin 0.4 mg 12/18/20 20:07 Nitroglycerin Sl Tabs 0.4 Mg Tab SUBLINGUAL Q5M PRN Chest Pain Nitroglycerin 1 inch 12/19/20 00:00 12/19/20 05:28 Nitroglycerin Oint 1 Inch/Gm Packet TOPICAL Not Given Q6HR JAIME Intake and Output 12/18/20 12/19/20 12/19/20 22:59 06:59 14:59 Intake Total 0 Balance 0 Intake: Oral 0 Other: Voiding Method Toilet # Voids 2 Weight 90.718 kg 88.2 kg 12/18/20 18:24 12/18/20 18:24
--- NOTE | 2020-12-19 15:35 | ECHOS ---
STRESS ECHOCARDIOGRAM INDICATIONS: Chest pain BASELINE HEART RATE: 53. BASELINE BLOOD PRESSURE: 145/90 MAXIMUM HEART RATE: 145 MAXIMUM BLOOD PRESSURE: 248/87 85% MPHR: 136 100% MPHR: 160 METS: 10.5 MAXIMUM STAGE REACHED: 3 TOTAL EXERCISE TIME: 9:00 CLINICAL INFORMATION: Baseline EKG revealed normal sinus rhythm without significant ST-T changes. Patient walked on standard Trev protocol for 9 minutes and achieved a maximal heart rate of 145 beats per minute, which is more than 85% of predicted maximal. Resting blood pressure was 145/90 and peak blood pressure was 240/87. The patient had hypertensive response to exercise. No angina. EKG did not reveal ST-segment changes to indicate ischemia. Fair exercise capacity with a negative stress test by EKG criteria with hypertensive response to exercise. Baseline echo images revealed normal wall motion and wall thickening of all segments. At peak exercise, there was good augmentation of left ventricular wall motion and wall thickening of all segments, suggesting that there is no evidence of any stress-induced ischemia. Patient's heart rate as the echo was obtained had dropped down quickly to the mid 120 range. FINAL IMPRESSION: 1. Fair exercise capacity with a negative stress test by EKG criteria. 2. Hypertensive response to exercise. 3. Normal stress echocardiogram without evidence of ischemia. MMODL / IJN: [id number] /
[2020-12-19 16:05] VITALS: PULSE 63; TEMP 98.2
[2020-12-19] MEDS ORDERED: LORazepam 2 MG/ML INJ IV STA (16:14)
[2020-12-19 16:18] VITALS: BP 130/86
[2020-12-20] MEDS ORDERED: ASPIRIN 81 MG PO SCH (09:00)
== END 2020-12-19 17:00 | disposition home or self-care (01) ==
LOC: EC 15:46 → 6NMEDSUR 20:07 → 3SCARD 12-19 00:57
PROVIDERS: ADMIT Internal Medicine; ATTEND Internal Medicine
DX: R07.9 Chest pain, unspecified (principal); R00.1 Bradycardia, unspecified; R06.02 Shortness of breath; R61 Generalized hyperhidrosis; F17.200 Nicotine dependence, unspecified, uncomplicated; Z20.822 Contact with and (suspected) exposure to COVID-19; Z82.49 Family history of ischemic heart disease and other diseases of the circulatory system
CPT/HCPCS: 99285; 36415; 93005; 93306; 93351; 80061; 80053; 83735; 84484 ×2; 85025; 85610; 85730; 87635; 71046; G0378 ×3

== ENCOUNTER 2024-01-10 14:00 | Emergency (ER) | payer BC ==
[2024-01-10 15:00] LABS: Basophils # (A) 0.1 k/uL (0-0.2); Basophils % (A) 1 %; Eosinophils # (A) 0.6 k/uL (0-0.7); Eosinophils % (A) 5 %; HCT 46.8 % (39.0-53.0); HGB 15.8 gm/dL (13.0-17.5); Lymphocytes # (A) 2.1 k/uL (1.0-4.8); Lymphocytes % (A) 17 %; MCH 33.2 pg (25.0-35.0); MCHC 33.7 g/dL (31.0-37.0); MCV 98.6 fL (80.0-100.0); Mean Platelet Volume 7.3; Monocytes # (A) 0.7 k/uL (0-1.0); Monocytes % (A) 6 %; Neutrophils # (A) 8.8 k/uL (1.3-7.7); Neutrophils % (A) 70 %; Platelet Count 327 k/uL (150-450); RBC 4.75 m/uL (4.30-5.90); RDW 12.5 % (11.5-15.5); WBC 12.6 k/uL (3.8-10.6)
[2024-01-10 15:12] LABS: ALT 24 U/L (4-49); AST 29 U/L (17-59); African American GFR (CKD) >90 (>60 ml/min/1.73 sqM); Albumin 4.5 g/dL (3.5-5.0); Alkaline Phosphatase 95 U/L (38-126); Anion Gap 8 mmol/L; Blood Urea Nitrogen 17 mg/dL (9-20); Calcium 9.2 mg/dL (8.4-10.2); Carbon Dioxide 29 mmol/L (22-30); Chloride 103 mmol/L (98-107); Glucose 115 mg/dL (74-99); INR 0.9 (<1.2); Non-African American GFR(CKD) >90 (>60 ml/min/1.73 sqM); Partial Thromboplastin Time 27.1 sec (22.0-30.0); Potassium 4.9 mmol/L (3.5-5.1); Prothrombin Time 10.1 sec (10.0-12.5); Sodium 140 mmol/L (137-145); Total Bilirubin 0.5 mg/dL (0.2-1.3); Total Protein 7.5 g/dL (6.3-8.2)
--- NOTE | 2024-01-10 16:11 | ED ---
Skin/Abscess/FB HPI - General Chief complaint: Skin/Abscess/Foreign Body Stated complaint: Rash bilat legs Source: patient Mode of arrival: ambulatory Limitations: no limitations - History of Present Illness Initial comments: This is a 63-year-old male with history of EtOH abuse presenting with rash and bilateral lower extremities x 8 months. Patient states he was sent to ER f [facility] urgent care visit. Patient endorses rash starting on left foot with associated itching. States rash is then progressed up bilateral anterior shins and continues to spread upwards to knees. Patient endorses scaling and scabbing overlying rash/discoloration but otherwise denies pain or discharge. Patient endorses some relief with previously prescribed clobetasol cream but has since run out. Patient mentions some numbness on the bottom of his feet. Denies history of diabetes or DVT/vascular disease. Patient states he does not have a primary care provider. MD complaint: discoloration Onset/Timin -: month(s) Location: LLE, RLE Associated symptoms: denies other symptoms Treatments Prior to Arrival: corticosteroid - Related Data Home Medications Medication Instructions Recorded Confirmed Ibuprofen [Advil] 200 mg PO Q8HR PRN 12/18/20 12/18/20 Previous Rx's Medication Instructions Recorded Aspirin [Adult Low Dose Aspirin EC] 81 mg PO DAILY 30 Days #30 tab 12/19/20 Cephalexin [Keflex] 500 mg PO Q6HR #40 cap 01/10/24 Clobetasol Propionate [Temovate 1 applic TOPICAL BID #60 gm 01/10/24 0.05% Cream] predniSONE 10 mg PO DIRECTED #30 tab 01/10/24 Allergies Allergy/AdvReac Type Severity Reaction Status Date / Time No Known Allergies Allergy Verified 01/10/24 14:02 Review of Systems ROS Statement: Those systems with pertinent positive or pertinent negative responses have been documented in the HPI. ROS Other: All systems not noted in ROS Statement are negative. Past Medical History Past Medical History: No Reported History History of Any Multi-Drug Resistant Organisms: None Reported Past Surgical History: No Surgical Hx Reported Past Psychological History: No Psychological Hx Reported Smoking Status: Current every day smoker Past Alcohol Use History: Daily Past Drug Use History: Marijuana General Exam Limitations: no limitations General appearance: alert, in no apparent distress Head exam: Present: atraumatic, normocephalic, normal inspection Eye exam: Present: normal appearance, PERRL, EOMI. Absent: scleral icterus, conjunctival injection, periorbital swelling ENT exam: Present: normal exam, mucous membranes moist Neck exam: Present: normal inspection. Absent: tenderness, meningismus, lymphadenopathy Respiratory exam: Present: normal lung sounds bilaterally. Absent: respiratory distress, wheezes, rales, rhonchi, stridor Cardiovascular Exam: Present: regular rate, normal rhythm, normal heart sounds. Absent: systolic murmur, diastolic murmur, rubs, gallop, clicks GI/Abdominal exam: Present: soft, normal bowel sounds. Absent: distended, tenderness, guarding, rebound, rigid Extremities exam: Present: normal inspection, full ROM, normal capillary refill. Absent: tenderness, pedal edema, joint swelling, calf tenderness Back exam: Present: normal inspection Neurological exam: Present: alert, oriented X3, CN II-XII intact Psychiatric exam: Present: normal affect, normal mood Skin exam: Present: warm (Negative warmth/tenderness to palpation. Distal neurovascular intact dorsalis pedis pulse +2 bilaterally. Distal motor function intact bilaterally), dry, rash (Patchy, erythematous rash extending across bilateral shins with overlying scabbing/scaling. Initial palm sized rash on dorsal aspect of left foot with scabbing noted as originating rash. Negative elevated border, vesicles, blistering, discharge), erythema (Rash almost appears as stasis dermatitis but is not uniform and confluent. Does not jacklyn with palpation.), other (Significant number of varicose veins noted) Course Vital Signs 01/10/24 01/10/24 01/10/24 14:02 15:47 16:35 Temperature 98.6 F 98.8 F Pulse Rate 78 70 71 Respiratory 18 17 18 Rate Blood Pressure 147/76 156/79 148/86 O2 Sat by Pulse 95 96 95 Oximetry Medical Decision Making - Medical Decision Making Was pt. sent in by a medical professional or institution (, PA, BUSHING PRESS OPERATOR, urgent care, hospital, or alf...) When possible be specific @ -No Did you speak to anyone other than the patient for history (EMS, parent, family, police, friend...)? What history was obtained from this source @ -No Did you review nursing and triage notes (agree or disagree)? Why? @ -I reviewed and agree with nursing and triage notes Were old charts reviewed (outside hosp., previous admission, EMS record, old EKG, old radiological studies, urgent care reports/EKG's, alf records)? Report findings @ -No old charts were reviewed Differential Diagnosis (chest pain, altered mental status, abdominal pain women, abdominal pain men, vaginal bleeding, weakness, fever, dyspnea, syncope, headache, dizziness, GI bleed, back pain, seizure, CVA, palpatations, mental health, musculoskeletal)? @ -Atopic dermatitis, psoriasis, contact dermatitis, allergic urticaria, tinea corporis, stasis dermatitis, impetigo, vasculitis, erysipelas, cellulitis DVT, this is not an exhaustive list EKG interpreted by me (3pts min.). @ -Not done X-rays interpreted by me (1pt min.). @ -None done CT interpreted by me (1pt min.). @ -None done U/S interpreted by me (1pt. min.). @ -None done What testing was considered but not performed or refused? (CT, X-rays, U/S, labs)? Why? @ -None What meds were considered but not given or refused? Why? @ -None Did you discuss the management of the patient with other professionals (professionals i.e. , PA, BUSHING PRESS OPERATOR, lab, RT, psych nurse, social media content specialist, postal carrier, teacher, senior compliance officer, cyanide case hardener)? Give summary @ -No Was smoking cessation discussed for >3mins.? @ -No Was critical care preformed (if so, how long)? @ -No Were there social determinants of health that impacted care today? How? (Homelessness, low income, unemployed, alcoholism, drug addiction, transportati on, low edu. Level, literacy, decrease access to med. care, longterm, rehab)? @ -Alcoholism Was there de-escalation of care discussed even if they declined (Discuss DNR or withdrawal of care, Hospice)? DNR status @ -No What co-morbidities impacted this encounter? (DM, HTN, Smoking, COPD, CAD, Cancer, CVA, ARF, Chemo, Hep., AIDS, mental health diagnosis, sleep apnea, morbid obesity)? @ -None Was patient admitted / discharged? Hospital course, mention meds given and route, prescriptions, significant lab abnormalities, going to OR and other pertinent info. @ -Discharge. Received assistance from Dr. Johnson to potentially diagnose rash. Dr. Johnson advised steroids and antibiotics to cover all concerning differential diagnosis. Solu-Medrol IM given to patient prior to discharge. Advised patient to follow-up with primary care/dermatology. Undiagnosed new problem with uncertain prognosis? @ -No Drug Therapy requiring intensive monitoring for toxicity (Heparin, Nitro, Insulin, Cardizem)? @ -No Were any procedures done? @ -No Diagnosis/symptom? @ -Idiopathic dermatitis Acute, or Chronic, or Acute on Chronic? @ -Chronic Uncomplicated (without systemic symptoms) or Complicated (systemic symptoms)? @ -Uncomplicated Side effects of treatment? @ -No Exacerbation, Progression, or Severe Exacerbation? @ -Progression Poses a threat to life or bodily function? How? (Chest pain, USA, CA, pneumonia, PE, COPD, DKA, ARF, appy, cholecystitis, CVA, Diverticulitis, Homicidal, Suicidal, threat to staff... and all critical care pts) @ -No - Lab Data Result diagrams: 01/10/24 14:44 01/10/24 14:44 Lab Results 01/10/24 01/10/24 01/10/24 Range/Units 14:44 14:44 14:44 WBC 12.6 H (3.8-10.6) k/uL RBC 4.75 (4.30-5.90) m/uL Hgb 15.8 (13.0-17.5) gm/dL Hct 46.8 (39.0-53.0) % MCV 98.6 (80.0-100.0) fL MCH 33.2 (25.0-35.0) pg MCHC 33.7 (31.0-37.0) g/dL RDW 12.5 (11.5-15.5) % Plt Count 327 (150-450) k/uL MPV 7.3 Neutrophils % 70 % Lymphocytes % 17 % Monocytes % 6 % Eosinophils % 5 % Basophils % 1 % Neutrophils # 8.8 H (1.3-7.7) k/uL Lymphocytes # 2.1 (1.0-4.8) k/uL Monocytes # 0.7 (0-1.0) k/uL Eosinophils # 0.6 (0-0.7) k/uL Basophils # 0.1 (0-0.2) k/uL ESR 31 H (0-20) mm/Hr PT 10.1 (10.0-12.5) sec INR 0.9 (<1.2) APTT 27.1 (22.0-30.0) sec Sodium 140 (137-145) mmol/L Potassium 4.9 (3.5-5.1) mmol/L Chloride 103 (98-107) mmol/L Carbon Dioxide 29 (22-30) mmol/L Anion Gap 8 mmol/L BUN 17 (9-20) mg/dL Creatinine 0.83 (0.66-1.25) mg/dL Est GFR (CKD-EPI)AfAm >90 (>60 ml/min/1.73 sqM) Est GFR (CKD-EPI)NonAf >90 (>60 ml/min/1.73 sqM) Glucose 115 H (74-99) mg/dL Estimated Ave Glu mg/dL mg/dL Hemoglobin A1c (<=6.0) % Plasma Lactic Acid Zac (0.7-2.0) mmol/L Calcium 9.2 (8.4-10.2) mg/dL Total Bilirubin 0.5 (0.2-1.3) mg/dL AST 29 (17-59) U/L ALT 24 (4-49) U/L Alkaline Phosphatase 95 (38-126) U/L Total Protein 7.5 (6.3-8.2) g/dL Albumin 4.5 (3.5-5.0) g/dL 01/10/24 01/10/24 Range/Units 14:44 14:44 WBC (3.8-10.6) k/uL RBC (4.30-5.90) m/uL Hgb (13.0-17.5) gm/dL Hct (39.0-53.0) % MCV (80.0-100.0) fL MCH (25.0-35.0) pg MCHC (31.0-37.0) g/dL RDW (11.5-15.5) % Plt Count (150-450) k/uL MPV Neutrophils % % Lymphocytes % % Monocytes % % Eosinophils % % Basophils % % Neutrophils # (1.3-7.7) k/uL Lymphocytes # (1.0-4.8) k/uL Monocytes # (0-1.0) k/uL Eosinophils # (0-0.7) k/uL Basophils # (0-0.2) k/uL ESR (0-20) mm/Hr PT (10.0-12.5) sec INR (<1.2) APTT (22.0-30.0) sec Sodium (137-145) mmol/L Potassium (3.5-5.1) mmol/L Chloride (98-107) mmol/L Carbon Dioxide (22-30) mmol/L Anion Gap mmol/L BUN (9-20) mg/dL Creatinine (0.66-1.25) mg/dL Est GFR (CKD-EPI)AfAm (>60 ml/min/1.73 sqM) Est GFR (CKD-EPI)NonAf (>60 ml/min/1.73 sqM) Glucose (74-99) mg/dL Estimated Ave Glu mg/dL 117 mg/dL Hemoglobin A1c 5.7 (<=6.0) % Plasma Lactic Acid Zac 1.1 (0.7-2.0) mmol/L Calcium (8.4-10.2) mg/dL Total Bilirubin (0.2-1.3) mg/dL AST (17-59) U/L ALT (4-49) U/L Alkaline Phosphatase (38-126) U/L Total Protein (6.3-8.2) g/dL Albumin (3.5-5.0) g/dL Disposition Clinical Impression: Contact dermatitis, Vasculitis Disposition: HOME SELF-CARE Condition: Good Instructions (If sedation given, give patient instructions): Contact Dermatitis (ED) Prescriptions: Cephalexin [Keflex] 500 mg PO Q6HR #40 cap predniSONE 10 mg PO DIRECTED #30 tab Clobetasol Propionate [Temovate 0.05% Cream] 1 applic TOPICAL BID #60 gm Is patient prescribed a controlled substance at d/c from ED?: No Referrals: None,Stated [Primary Care Provider] - 1-2 days Freda Tineo MD [STAFF PHYSICIAN] - 1-2 days Time of Disposition: 16:10
[2024-01-10] MEDS: methylPREDNISolone SOD SUCCI 125 MG/2 ML VIAL IM ONE (16:30)
[2024-01-10 16:56] VITALS: BP 148/86; PULSE 71; RESP 18; TEMP 98.8
[2024-01-10 19:17] LABS: Erythrocyte Sedimentation Rate 31 mm/Hr (0-20)
== END 2024-01-10 16:40 | disposition home or self-care (01) ==
LOC: EC 14:00
DX: L25.9 Unspecified contact dermatitis, unspecified cause (principal); I77.6 Arteritis, unspecified; F17.200 Nicotine dependence, unspecified, uncomplicated
CPT/HCPCS: 36415; 80053; 85652; 83605; 85025; 85610; 85730; 83036; 99283; 96372; J2919